=== PATIENT | female | born 1985 | race Caucasian/White ===

== ENCOUNTER 2016-12-31 08:37 | Emergency (ER) ==
[2016-12-31 08:47] VITALS: BP 127/73
[2016-12-31 08:58] LABS: MANUAL DIFF NEEDED? NO
[2016-12-31 08:59] LABS: BASO% 0.3 % (0.0-0.8); EOS# 0.18 X1000 (0.0-0.7); EOS% 2.9 % (0.0-10.0); HEMATOCRIT 38.2 % (37.0-47.0); HEMOGLOBIN 13.1 g/dL (12.0-16.0); IMM GRAN# 0.01 X1000 (0.0-0.04); IMM GRAN% 0.2 % (0.0-0.5); LYMPH# 1.82 X1000 (1.2-3.4); LYMPH% 29.3 % (20.5-51.1); MCHC 34.3 g/dL (33-37); MCV 87.4 FL (81-99); MONO# 0.58 X1000 (0.11-0.59); MONO% 9.3 % (1.7-9.3); MPV 11.1 FL (7.4-10.4); PLT 187 X1000 (130-400); RBC 4.37 XMIL (4.2-5.4)
--- NOTE | 2016-12-31 09:04 | PROVIDER DOCUMENTATION ---
HPI-Female /OB/Breast - General Source: reports: patient - History of Present Illness-Female /OB Location of complaint: reports: RLQ, LLQ Radiation: reports: none Onset/Duration: reports: 24 hours ago Vaginal Symptoms: reports: abnormal bleeding Vaginal Bleeding Amount: Copious/Excessive Urinary Symptoms: reports: no symptoms <Sarita Carr - Last Filed: 12/31/16 10:30> <Kvng Tapia - Last Filed: 12/31/16 10:34> - General Chief Complaint: Post Op Complaint Stated Complaint: RECHECK Time Seen by Provider: 12/31/16 09:04 Allergies/Adverse Reactions: Patient Allergies Allergy/AdvReac Type Severity Reaction Status Date / Time Cephalosporins Allergy Unknown Verified 12/31/16 08:47 Home Medications: Home Medication List Medication Instructions Recorded Confirmed Last Taken Type Hydrocodone/APAP 5 mg/325 mg 1 dose 12/31/16 12/31/16 History [[place]-5] Ibuprofen [Motrin] 600 mg 12/31/16 12/31/16 07:00 History - History of Present Illness-Female /OB Nature of Presenting Problem: 31 yo F presents to the ER with complaint of heavy vaginal bleeding, onset of yesterday. Pt had a tubal x5 days ago, states that they tried to do a uterine ablasion but "the equipment faulted" and was unable to complete it. States last menstrual cycle was x3 weeks ago. Saturating 1 pad per hour and complains of abdominal cramping. (Sarita Carr) Review of Systems - Adult - REVIEW OF SYSTEMS - ADULT Constitutional: denies: chills, fever Eyes: reports: no symptoms reported Ears, Nose, Mouth & Throat: reports: no symptoms reported Cardiovascular: denies: chest pain, palpitations Respiratory: denies: cough, shortness of breath Gastrointestinal: reports: no symptoms reported Genitourinary: reports: other (vaginal bleeding). denies: discharge Musculoskeletal: reports: no symptoms reported Integumentary: reports: no symptoms reported Neurological: reports: dizziness/vertigo. denies: headache/migraines Psychiatric: reports: no symptoms reported Endocrine: reports: no symptoms reported Hematologic/Lymphatic: reports: no symptoms reported Allergic/Immunologic: reports: no symptoms reported All Other Systems: Reviewed and Negative <Sarita Carr - Last Filed: 12/31/16 10:30> Past History - Adult - PAST MEDICAL HISTORY-ADULT Review of Records: reports: Nursing Assessment Review, Medications Reviewed - PRIOR SURGERIES/PROCEDURES Surgical/Procedure History: reports: recent surgery, BTL, hernia repair - IMMUNIZATION STATUS Childhood Immunizations: See Nurse Assessment Flu Vaccine: See Nurse Assessment <Sarita Carr - Last Filed: 12/31/16 10:30> Physical Exam-General - PHYSICAL EXAM-ADULT Initial Vital Signs Reviewed: Yes - CONSTITUTIONAL General Appearance: alert, no apparent distress - EYES Eyes: PERRL/EOMI, pink conjunctivae - HEAD, EARS, NOSE, MOUTH & THROAT HENMT: normocephalic/atraumatic, normal ENT inspection - NECK Neck: supple, normal inspection - RESPIRATORY Respiratory: no respiratory distress, no accessory muscle use - CARDIOVASCULAR Cardiovascular: normal peripheral pulses, regular rate, rhythm - GASTROINTESTINAL (ABDOMEN) Abdominal Exam: soft, tenderness (LLQ, RLQ, Left > Right) - MUSCULOSKELETAL Back Exam: no CVA tenderness, no vertebral tenderness Extremity: normal gait, normal inspection - SKIN Integumentary: normal color, warm/dry - NEUROLOGIC Neurologic: grossly normal, no motor/sensory deficits - PSYCHIATRIC Psych/Mental Status: normal mood/affect, normal thought content, normal thought process, oriented x 3 <Sarita Carr - Last Filed: 12/31/16 10:30> Progress - CONSULTS/PCP/HOSPITALIST Notification #1 *Consult/PCP/Hospitalist*: Dr. Neal Time Discussed: 09:24 Consult Disposition: Will see in ED <Sarita Carr - Last Filed: 12/31/16 10:30> <Kvng Tapia - Last Filed: 12/31/16 10:34> - PLAN OF CARE/RESULTS Progress/Plan/Lab Results: Vital Signs Temp Pulse Resp BP Pulse Ox 12/31/16 08:44 98 F 79 18 127/73 100 Cephalosporins Allergy (Verified 12/31/16 08:47) Unknown Hydrocodone/APAP 5 mg/325 mg [[place]-5] 1 dose 12/31/16 Ibuprofen [Motrin] 600 mg 12/31/16 Laboratory 12/31/16 08:53 WBC 6.22 RBC 4.37 Hgb 13.1 Hct 38.2 MCV 87.4 MCH 30.0 MCHC 34.3 RDW Std Deviation 13.0 Plt Count 187 MPV 11.1 H Immature Gran % (Auto) 0.2 Neut % (Auto) 58.0 Lymph % (Auto) 29.3 Randolph % (Auto) 9.3 Eos % (Auto) 2.9 Baso % (Auto) 0.3 Immature Gran # (Auto) 0.01 Neut # (Auto) 3.61 Lymph # (Auto) 1.82 [place] # (Auto) 0.58 Eos # (Auto) 0.18 Baso # (Auto) 0.02 Orders Category Date Time Status CBC WITH DIFF [HEME] Stat Lab 12/31/16 08:[address] Neal at bedside to examine pt - performed a pelvic exam, scant amount of blood, recommend to follow up with obgyn (Sarita Carr) Departure - Departure Time of Disposition Order: 10:30 Certified Medical Emergency: Emergent <Sarita Carr - Last Filed: 12/31/16 10:30> - Departure Time of Disposition Order: 10:34 <Kvng Tapia - Last Filed: 12/31/16 10:34> - Departure DIAGNOSIS: Postoperative vaginal bleeding Disposition: HOME 01 Condition: Stable Additional Instructions: Follow up with your OBGYN ED Follow Up Instructions: You have been treated by a care provider in the Emergency Department. These instructions are being provided to you so you can have an understanding of how to care for yourself upon discharge. Upon discharge from the Emergency Department, you are responsible for making arrangements for follow-up care by a physician of your choice. Take all prescribed medications as directed. Return to the Emergency Department immediately for any new or worsening symptoms. You may call the Physician Referral phone number at [phone] to obtain a list of Physicians who are taking new patients. Referrals: Leandro Larkin MD [Primary Care Provider] - Instructions: Pelvic Rest Attestation - Scribe Verification/Attestation Scribe:: Sarita Carr Acting as Scribe for:: Kvng Tapia Scribe documention review:: This chart was documented by a scribe and accurately reflects the service the provider performed and the decisions made by the provider. <Sarita Carr - Last Filed: 12/31/16 10:30> Physician Attestation
== END 2016-12-31 10:40 | disposition home or self-care (01) ==
LOC: P.ED 08:37
DX: N99.820 Postprocedural hemorrhage of a genitourinary system organ or structure following a genitourinary system procedure (principal); R42 Dizziness and giddiness; R10.32 Left lower quadrant pain
CPT/HCPCS: 85025; 99283